=== PATIENT | female | born 1980 | race Caucasian/White ===

== ENCOUNTER 2019-02-20 09:35 | Emergency (ER) | payer MEDICAID ==
[~2019-02-20] VITALS: Ht 160 cm; Wt 59.9 kg
[~2019-02-20 09:35] MED LIST: PRENAT PO
[2019-02-20 09:37] VITALS: BP 118/65; PULSE 70; RESP 18; Ht 160 cm; Wt 59.9 kg
--- NOTE | 2019-02-20 11:41 | ERD ---
ER Documentation Chief Complaint Chief Complaint intermittent vaginal bleeding/spotting x 2 weeks 6 weeks HPI This is a 38-year-old female who is G2, P1 approximately 8 weeks complaining of intermittent vaginal bleeding/spotting for the past 2 weeks. She also admits to suprapubic bilateral pelvic cramping pain. She gets occasional lower back pain. No significant nausea or vomiting. She is taking v itamins. No fevers. States she uses about 2 pads per day. ROS All systems reviewed and are negative except as per history of present illness. Medications Home Meds Reported Medications Multivit/Min/Fol Ac/Iron/Pren* ( S*) 1 Tab Tab, 1 TAB PO DAILY, TAB 10/19/14 Allergies Allergies: Coded Allergies: No Known Drug Allergies (Unverified Allergy, Unknown, 10/19/14) PMhx/Soc History of Surgery: Yes (c section) Hx Neurological Disorder: No Hx Respiratory Disorders: No Hx Cardiac Disorders: No Hx Psychiatric Problems: No Hx Miscellaneous Medical Probl: No Hx Alcohol Use: No Hx Substance Use: No Hx Tobacco Use: No FmHx Family History: No diabetes Physical Exam Vitals Vital Signs Date Temp Pulse Resp B/P (MAP) Pulse Ox O2 O2 Flow FiO2 Time Delivery Rate 02/20/19 98.2 70 18 118/65 100 09:37 (82) Physical Exam INITIAL VITAL SIGNS: Reviewed by me GENERAL: Awake, alert and oriented x 4, well appearing, nontoxic, speaking in full sentences. No acute distress HEAD: Atraumatic NECK: Supple. No masses. Full range of motion. No meningismus. No midline tenderness. RESPIRATORY: Clear to auscultation bilaterally. Symmetric chest wall rise. No wheezing or rales. No accessory muscle use. CV: Regular rate and rhythm. No murmurs, rubs, or gallops. ABDOMEN: Soft, non-distended. Nontender. Negative [place]. Negative [place] point tenderness. No CVA tenderness bilaterally. No guarding. No rebound. Result Diagram: 02/20/19 1006 Results 24 hrs Laboratory Tests Test 02/20/19 10:06 White Blood Count 7.2 10^3/ul Red Blood Count 4.41 10^6/ul Hemoglobin 13.4 g/dl Hematocrit 39.0 % Mean Corpuscular Volume 88.4 fl Mean Corpuscular Hemoglobin 30.4 pg Mean Corpuscular Hemoglobin Concent 34.4 g/dl Red Cell Distribution Width 12.7 % Platelet Count 242 10^3/UL Mean Platelet Volume 10.0 fl Immature Granulocytes % 0.400 % Neutrophils % 61.9 % Lymphocytes % 27.5 % Monocytes % 8.5 % Eosinophils % 1.3 % Basophils % 0.4 % Nucleated Red Blood Cells % 0.0 /100WBC Immature Granulocytes # 0.030 10^3/ul Neutrophils # 4.5 10^3/ul Lymphocytes # 2.0 10^3/ul Monocytes # 0.6 10^3/ul Eosinophils # 0.1 10^3/ul Basophils # 0.0 10^3/ul Nucleated Red Blood Cells # 0.0 10^3/ul Urine Color YELLOW Urine Clarity SLIGHTLY CLOUDY Urine pH 6.0 Urine Specific [place] 1.015 Urine Ketones NEGATIVE mg/dL Urine Nitrite NEGATIVE mg/dL Urine Bilirubin NEGATIVE mg/dL Urine Urobilinogen NEGATIVE mg/dL Urine Leukocyte Esterase NEGATIVE Ruma/ul Urine Microscopic RBC 0 /HPF Urine Microscopic WBC 1 /HPF Urine Squamous Epithelial Cells FEW /HPF Urine Bacteria FEW /HPF Urine Hemoglobin NEGATIVE mg/dL Urine Glucose NEGATIVE mg/dL Urine Total Protein NEGATIVE mg/dl Beta HCG, Quantitative 879499.0 mIU/ml Procedures/MDM The differential diagnosis includes but is not limited to threatened/incomp lete/inevitable/complete , ectopic , non- related bleeding, and others. Laboratory analysis shows no evidence of acute emergent abnormality. No evidence of significant leukocytosis suggesting systemic infection or severe anemia. No evidence of acute renal or liver failure, no evidence of severe alkalosis or acidosis. Ultrasound shows normal IUP with heart tones. She also has a small fibroid. She was given copies of everything she can follow-up with primary care. No evidence of OB emergency at this time. Patient counseled regarding my diagnostic impression and care plan. Prior to discharge all questions answered. Pt agrees with treatment plan and understands strict return precautions. Pt is instructed to follow up with primary care provider within 24-48 hours. Precautionary instructions provided including instructions to return to the ER if not improving or for any worsening or changing symptoms or concerns. Departure Diagnosis: Primary Impression: Threatened Condition: Stable Patient Instructions: Possible Miscarriage (Threatened ) Additional Instructions: Llame al doctor SUPRIYA y feliciano sam NASIMA PARA DENTRO DE 1-2 SOL.Dgale a la secretaria que nosotros le instruimos hacer esta nasima.Avise o llame si taveras condicin se empeora antes de la nasima. Regresa aqui si peor o no mejor. FERNANDO SORTO PA-C Feb 20, 2019 11:41
== END 2019-02-20 11:55 | disposition home or self-care (01) ==
LOC: FTE 09:35
DX: O20.0 Threatened abortion (principal); Z3A.08 8 weeks gestation of pregnancy
CPT/HCPCS: 36415; 76801; 81001; 84702; 85025; 86900; 86901; Z7502; 81003